=== PATIENT | male | born 1970 | race African-American/Black ===

== ENCOUNTER 2019-10-14 12:03 | Inpatient (IN) | payer OTHER ==
--- NOTE | 2019-10-14 14:00 | BHS.RME ---
Substance Use & Tx History - Substance Use History Alcohol Substance amount: 1/2 pint Frequency of use: Daily Substance route: Oral Date of Last Use: 10/13/19 Heroin Substance amount: 2 bags Frequency of use: More than 3 times per week Substance route: Inhalation (ex: sniffing or snorting) Date of Last Use: 10/14/19 Cocaine-Crack Substance amount: $50 Frequency of use: Daily Substance route: Smoking Date of Last Use: 10/13/19 Klonopin Substance amount: 2 mg x 2 tabs Frequency of use: More than 3 times per week Substance route: Oral Date of Last Use: 10/10/19 Marijuana/Hashish Substance amount: $20 Frequency of use: Daily Substance route: Smoking Date of Last Use: 10/14/19 Nicotine Substance amount: one pack Frequency of use: Daily Substance route: Smoking Date of Last Use: 10/14/19 Physical/Psych/Mental Status - Behavior General Behavior: Increased activity (restlessness, agitation) Eye Contact: Normal - Cooperativeness Cooperativeness: Cooperative - Thinking Thought Processes: Tight Thought content: Future oriented - Physical Health Problems Is patient presently having any pain?: No Does patient presently have any injuries (include location): No Does patient currently have a fever: No CIWA Nausea/Vomitin-No Nausea/No Vomiting Muscle Tremors: 1-None Visible, but [place] Anxiety: 1-Mildly Anxious Agitation: 1-Slight > Activity Paroxysmal Sweats: 1-Minimal Palms Moist Orientation: 1-Uncertain about Date Tacttile Disturbances: 0-None Auditory Disturbances: 0-None Visual Disturbances: 2-Mild Sensitivity Headache: 0-None Present CIWA-Ar Total Score: 7
--- NOTE | 2019-10-14 15:13 | HP ---
COWS - Scale Resting Pulse: 0= ID 80 or Below Sweatin= Chills/Flushing Restless Observation: 0= Sits Still Pupil Size: 0= Normal to Room Light Bone or Joint Aches: 0= None Runny Nose/ Eye Tearin= None GI Upset > 30mins: 0= None Tremor Observation: 1= Tremor [place], Not Seen Yawning Observation: 0= None Anxiety or Irritability: 1=Feels Anxious/Irritable Goose Flesh Skin: 0=Smooth Skin COWS Score: 3 CIWA Score Nausea/Vomitin-No Nausea/No Vomiting Muscle Tremors: 1-None Visible, but [place] Anxiety: 1-Mildly Anxious Agitation: 1-Slight > Activity Paroxysmal Sweats: 1-Minimal Palms Moist Orientation: 1-Uncertain about Date Tacttile Disturbances: 0-None Auditory Disturbances: 0-None Visual Disturbances: 2-Mild Sensitivity Headache: 0-None Present CIWA-Ar Total Score: 7 - Admission Criteria OASAS Guidelines: Admission for Medically Managed Detox: Requires at least one of the followin. CIWA greater than 12 2. Seizures within the past 24 hours 3. Delirium tremens within the past 24 hours 4. Hallucinations within the past 24 hours 5. Acute intervention needed for co occurring medical disorder 6. Acute intervention needed for co occurring psychiatric disorder 7. Severe withdrawal that cannot be handled at a lower level of care (continued vomiting, continued diarrhea, abnormal vital signs) requiring intravenous medication and/or fluids 8. Admitting History and Physical - Admission Chief Complaint: Mr. Brumfield is a 49 yo man who presents to [facility] stating he is here "to take a break" from polysubstance use disorder. History of Present Illness: Mr. Brumfield is a 49 yo man who presents to [facility] stating he is here "to take a break" from polysubstance use disorder. This is his first admission to [facility]. He was in [facility] 5 years ago for detox and rehab. He relapsed about 2 days post discharge from [facility]. PMH: Asthma, eczema PSH: none Psych: depression, anxiety on no meds SOC: has his own place in the [place] Legal: none - Substance Use History Alcohol Substance amount: 1/2 pint Frequency of use: Daily Substance route: Oral Date of Last Use: 10/13/19 First use age 13 y No seizures or blackouts. Admits to an eye boat laborer Heroin Substance amount: 2 bags Frequency of use: More than 3 times per week Substance route: Inhalation (ex: sniffing or snorting) Date of Last Use: 10/14/19 First use age 13. OD x 1, May 04, 2019. No Narcan at [facility]. Cocaine-Crack Substance amount: $50 Frequency of use: Daily Substance route: Smoking Date of Last Use: 10/13/19 First use age 13 y Klonopin Substance amount: 2 mg x 2 tabs Frequency of use: More than 3 times per week Substance route: Oral Date of Last Use: 10/10/19 First use age 13 Marijuana/Hashish Substance amount: $20 Frequency of use: Daily Substance route: Smoking Date of Last Use: 10/14/19 First use age 13 y Nicotine Substance amount: one pack Frequency of use: Daily Substance route: Smoking Date of Last Use: 10/14/19 First use age 13 y Patient Name: Shane Brumfield Date: 1970 Address: [address] [place] [address] Sex: Male Rx Written Rx Dispensed Drug Quantity Days Supply Prescriber Name 10/21/2018 10/22/2018 buprenorphine-naloxone 8-2 mg sl film 14 7 Yady Barrett MD 10/14/2018 10/15/2018 buprenorphine-naloxone 8-2 mg sl film 14 7 Yady Barrett MD Pt meets admission criteria due to current level of intoxication obscures full withdrawal spectrum. Additionally, he has comorbid medical conditions and untreated psychiatric issues. Pt was seen and had Utox done: THC and KARTIK Pt then left the facility and returned, repeat UDS: THC, KARTIK, FEN, MOP History Source: Patient Limitations to Obtaining History: No Limitations Admission ROS S - HPI Allergies/Adverse Reactions: Allergies Allergy/AdvReac Type Severity Reaction Status Date / Time No Known Drug Allergies Allergy Verified 10/14/19 15:27 Exam Limitations: No Limitations - Ebola screening Have you traveled outside of the country in the last 21 days: No Have you been sick,other than usual withdrawal symptoms: No Do you have a fever: No - Review of Systems Constitutional: Changes in sleep (trouble falling and staying asleep) Respiratory: reports: No Symptoms reported Cardiac: reports: No Symptoms Reported GI: reports: No Symptoms Reported : reports: No Symptoms Reported Musculoskeletal: reports: Back Pain (chronic) Integumentary: reports: Other (eczema, diffuse) Neuro: reports: No Symptoms reported Endocrine: reports: No Symptoms Reported Hematology: reports: No Symptoms Reported Psychiatric: reports: Anxious, Depressed (no SI) Patient History - Smoking Cessation Smoking history: Current every day smoker Have you smoked in the past 12 months: Yes Hx Chewing Tobacco Use: No Initiated information on smoking cessation: Yes 'Breaking Loose' booklet given: 10/14/19 Admission Physical Exam BHS - Vital Signs Vital Signs: vitals at 3:31 pm: Oxygen sat 100%, HR 72, BP 106/79, RR 16 - Physical General Appearance: Yes: No Apparent Distress, Nourished, Thin HEENTM: Yes: EOMI, Hearing grossly Normal, Normocephalic, Normal Voice Respiratory: Yes: Lungs Clear, Normal Breath Sounds, No Respiratory Distress, No Accessory Muscle Use Neck: Yes: Within Normal Limits, Supple Breast: Yes: Breast Exam Deferred Cardiology: Yes: Regular Rhythm, Regular Rate, S1, S2 Abdominal: Yes: Non Tender, Flat, Soft, Increased Bowel Sounds Genitourinary: Yes: Other (deferred) Back: Yes: Normal Inspection Musculoskeletal: Yes: Gait Steady Extremities: Yes: Normal Inspection, Non-Tender Neurological: Yes: Alert, Normal Response Integumentary: Yes: Normal Color, Dry, Warm - Diagnostic (1) Alcohol intoxication Current Visit: Yes Status: Acute Qualifiers: Complication of substance-induced condition: uncomplicated Qualified Code(s): F10.920 - Alcohol use, unspecified with intoxication, uncomplicated (2) Opioid use disorder Current Visit: Yes Status: Acute (3) Cocaine dependence Current Visit: Yes Status: Acute Qualifiers: Substance use status: uncomplicated Qualified Code(s): F14.20 - Cocaine dependence, uncomplicated (4) History of benzodiazepine use Current Visit: No Status: Chronic (5) Cannabis dependence Current Visit: Yes Status: Acute (6) Nicotine dependence Current Visit: Yes Status: Acute Qualifiers: Nicotine product type: cigarettes Substance use status: uncomplicated Qualified Code(s): F17.210 - Nicotine dependence, cigarettes, uncomplicated (7) Depression Current Visit: Yes Status: Acute (8) Asthma Current Visit: No Status: Chronic (9) Eczema Current Visit: No Status: Chronic Cleared for Admission BHS - Detox or Rehab Detox Regimen/Protocol: Methadone/Librium Breathalyzer - Breathalyzer Breathalyzer: 0.011 Urine Drug Screen - Test Device Lot number: [id number] Expiration date: 10/04/21 (pt had second UDS: after he left and returned: THC, KARTIK, FEN, MOP) - Control Is test valid?: Yes - Results Drug screen NEGATIVE: No Urine drug screen results: THC-Marijuana, KARTIK-Cocaine Inpatient Rehab Admission - Rehab Decision to Admit Inpatient rehab admission?: No
[2019-10-14] MEDS ORDERED: chlordiazePOXIDE HCL 25 MG CAPSULE PO PRN (15:27)
[2019-10-14] MEDS ORDERED: NICOTINE POLACRILEX 2 MG GUM BUC PRN (15:27)
[2019-10-14] MEDS ORDERED: MAGNESIUM HYDROX 2400MG/30ML ORAL SUSPENSION 30 ML CUP PO PRN (15:27)
[2019-10-14] MEDS ORDERED: MENTHOL/PHENOL 1 EACH UD MM PRN (15:27)
[2019-10-14] MEDS ORDERED: IBUPROFEN 400 MG TABLET (FP) PO PRN (15:27)
[2019-10-14] MEDS ORDERED: ACETAMINOPHEN 325 MG TABLET (FP) PO PRN ×2 (15:27)
[2019-10-14] MEDS ORDERED: cloNIDine HCL 0.1 MG TABLET PO PRN (15:27)
[2019-10-14] MEDS ORDERED: METHADONE HCL 10 MG TABLET (FOR DETOX USE ONLY) PO ONE (15:27)
[2019-10-14] MEDS ORDERED: METHOCARBAMOL 500 MG TABLET PO PRN (15:27)
[2019-10-14] MEDS ORDERED: BISMUTH SUBSALICYLATE 524 MG/30 ML UD PO PRN (15:27)
[2019-10-14] MEDS ORDERED: ONDANSETRON *ODT* 4 MG TABLET SL PRN (15:27)
[2019-10-14] MEDS ORDERED: MAGNESIUM CITRATE 300 ML BOTTLE PO PRN (15:27)
[2019-10-14 15:52] VITALS: BMI 19.2
[2019-10-14 16:48] LABS: HEMATOCRIT 41.7 % (35.4-49); HEMOGLOBIN 13.9 GM/dL (11.7-16.9); MCH 31.2 pg (25.7-33.7); MCHC 33.5 g/dl (32.0-35.9); MEAN CELL VOLUME 93.1 fl (80-96); MEAN PLT VOLUME 8.7 fl (7.5-11.1); PLATELET COUNT 184 K/MM3 (134-434); RBC 4.47 M/mm3 (4.00-5.60); RDW 13.9 % (11.9-15.9); WHITE BLOOD COUNT 10.3 K/mm3 (4.0-10.0)
[2019-10-14 16:58] LABS: BILIRUBIN,TOTAL 0.8 mg/dL (0.2-1); BLOOD UREA NITROGEN 11.4 mg/dL (7-18); POTASSIUM 4.5 mmol/L (3.5-5.1); TOT PROT 7.4 g/dl (6.4-8.2)
[2019-10-14] MEDS: chlordiazePOXIDE HCL 25 MG CAPSULE PO SCH ×2 (17:11→22:09)
[2019-10-14] MEDS: NICOTINE 21 MG/24 HOURS TOPICAL PATCH TD SCH (17:15)
[2019-10-14] MEDS: hydrOXYzine PAMOATE 25 MG CAPSULE (FP) PO SCH ×2 (17:20→22:11)
[2019-10-14] MEDS: THIAMINE HCL 100 MG TABLET (FP) PO SCH (22:09)
[2019-10-14] MEDS: MELATONIN 5 MG TABLETS PO SCH (22:09)
[2019-10-15] MEDS: hydrOXYzine PAMOATE 25 MG CAPSULE (FP) PO SCH ×2 (05:26→10:57)
[2019-10-15] MEDS: chlordiazePOXIDE HCL 25 MG CAPSULE PO SCH ×4 (05:26→22:00)
[2019-10-15] MEDS ORDERED: METHADONE HCL 5 MG TABLET (FOR DETOX USE ONLY) PO ONE (10:00)
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
[2019-10-15] MEDS: NICOTINE 21 MG/24 HOURS TOPICAL PATCH TD SCH (10:56)
[2019-10-15] MEDS: PRENATAL VITAMINS W/ FOLIC ACID TABLET (FP) PO SCH (10:56)
[2019-10-15] MEDS ORDERED: hydrOXYzine PAMOATE 25 MG CAPSULE (FP) PO PRN (12:26)
--- NOTE | 2019-10-15 12:43 | PN ---
S CIWA - CIWA Score Nausea/Vomitin-No Nausea/No Vomiting Muscle Tremors: 2 Anxiety: 1-Mildly Anxious Agitation: 1-Slight > Activity Paroxysmal Sweats: No Perspiration Orientation: 0-Oriented Tacttile Disturbances: 0-None Auditory Disturbances: 0-None Visual Disturbances: 0-None Headache: 0-None Present CIWA-Ar Total Score: 4 BHS COWS - Scale Resting Pulse: 0= [place] 80 or Below Sweatin= Chills/Flushing Restless Observation: 1= Difficult to Sit Still Pupil Size: 0= Normal to Room Light Bone or Joint Aches: 1= Mild Discomfort Runny Nose/ Eye Tearin= None GI Upset > 30mins: 0= None Tremor Observation of Outstretched Hands: 1= Tremor [place], Not Seen Yawning Observation: 1= 1-2x During Session Anxiety or Irritability: 1=Feels Anxious/Irritable Goose Flesh Skin: 0=Smooth Skin COWS Score: 6 S Progress Note (SOAP) Subjective: irritable body aches sweats agitation Objective: 10/15/19 12:42 Vital Signs Temperature 99.3 F 10/15/19 09:18 Pulse Rate 68 10/15/19 09:18 Respiratory Rate 18 10/15/19 09:18 Blood Pressure 121/75 10/15/19 09:18 O2 Sat by Pulse Oximetry (%) 99 10/15/19 09:18 Laboratory Tests 10/14/19 10/14/19 10/14/19 15:00 15:00 15:00 WBC 10.3 H RBC 4.47 Hgb 13.9 Hct 41.7 MCV 93.1 MCH 31.2 MCHC 33.5 RDW 13.9 Plt Count 184 MPV 8.7 Sodium 141 Potassium 4.5 Chloride 106 Carbon Dioxide 29 Anion Gap 7 L BUN 11.4 Creatinine 1.0 Est GFR (CKD-EPI)AfAm 102.69 Est GFR (CKD-EPI)NonAf 88.61 Random Glucose 117 H Calcium 9.0 Total Bilirubin 0.8 AST 40 H ALT 38 Alkaline Phosphatase 94 Total Protein 7.4 Albumin 4.0 Syphilis Serology Non-reactive labs noted aaox3 ambulating no acute distress Assessment: 10/15/19 12:43 withdrawals Plan: continue detox increase fluids
--- NOTE | 2019-10-15 15:47 | EKG ---
Test Reason : Blood Pressure : / mmHG Vent. Rate : 065 BPM Atrial Rate : 065 BPM P-R Int : 142 ms QRS Dur : 090 ms QT Int : 424 ms P-R-T Axes : 063 078 074 degrees QTc Int : 440 ms NORMAL SINUS RHYTHM MINIMAL VOLTAGE CRITERIA FOR LVH, MAY BE NORMAL VARIANT BORDERLINE ECG NO PREVIOUS ECGS AVAILABLE Confirmed by RYAN CHATMAN MD ([id number]) on 10/15/2019 3:47:17 PM Referred By: Confirmed By:RYAN CHATMAN MD
[2019-10-15] MEDS: QUEtiapine FUMARATE 100 MG TABLET (FP) PO SCH (21:57)
[2019-10-15] MEDS: MELATONIN 5 MG TABLETS PO SCH (21:57)
[2019-10-15] MEDS: THIAMINE HCL 100 MG TABLET (FP) PO SCH (21:57)
[2019-10-15] MEDS: MAG HYDROX/AL HYDROX/SIMETH 30 ML UNIT-DOSE CUP PO PRN (22:21)
[2019-10-16] MEDS: chlordiazePOXIDE HCL 25 MG CAPSULE PO SCH ×4 (06:51→22:11)
[2019-10-16] MEDS ORDERED: METHADONE HCL 10 MG TABLET (FOR DETOX USE ONLY) PO ONE (10:00)
[2019-10-16] MEDS ORDERED: MASKS NR ONE (10:07)
[2019-10-16] MEDS: PRENATAL VITAMINS W/ FOLIC ACID TABLET (FP) PO SCH (10:24)
[2019-10-16] MEDS: NICOTINE 21 MG/24 HOURS TOPICAL PATCH TD SCH (10:24)
[2019-10-16] MEDS ORDERED: PANTOPRAZOLE 20 MG TABLET PO ONE (12:03)
--- NOTE | 2019-10-16 14:13 | PN ---
S CIWA - CIWA Score Nausea/Vomitin-No Nausea/No Vomiting Muscle Tremors: 2 Anxiety: 3 Agitation: 2 Paroxysmal Sweats: 1-Minimal Palms Moist Orientation: 0-Oriented Tacttile Disturbances: 1-Very Mild Itch/Numbness Auditory Disturbances: 0-None Visual Disturbances: 1-Very Mild Sensitivity Headache: 0-None Present CIWA-Ar Total Score: 10 BHS COWS - Scale Resting Pulse: 0= [place] 80 or Below Sweatin= Chills/Flushing Restless Observation: 1= Difficult to Sit Still Pupil Size: 0= Normal to Room Light Bone or Joint Aches: 2= Severe Diffuse Aches Runny Nose/ Eye Tearin= None GI Upset > 30mins: 0= None Tremor Observation of Outstretched Hands: 1= Tremor [place], Not Seen Yawning Observation: 1= 1-2x During Session Anxiety or Irritability: 2=Irritable/Anxious Goose Flesh Skin: 0=Smooth Skin COWS Score: 8 BHS Progress Note (SOAP) Subjective: Anxious, Restless, Body Aches, Fatigue, Sweating. Objective: Patient A & O X 3, Observed Ambulating on Detox Unit Unassisted. In No Acute Distress. 10/16/19 14:12 Vital Signs Temperature 98.1 F 10/16/19 08:50 Pulse Rate 80 10/16/19 08:50 Respiratory Rate 19 10/16/19 08:50 Blood Pressure 93/67 10/16/19 08:50 O2 Sat by Pulse Oximetry (%) 100 10/16/19 08:50 Laboratory Tests 10/14/19 10/14/19 10/14/19 15:00 15:00 15:00 WBC 10.3 H RBC 4.47 Hgb 13.9 Hct 41.7 MCV 93.1 MCH 31.2 MCHC 33.5 RDW 13.9 Plt Count 184 MPV 8.7 Sodium 141 Potassium 4.5 Chloride 106 Carbon Dioxide 29 Anion Gap 7 L BUN 11.4 Creatinine 1.0 Est GFR (CKD-EPI)AfAm 102.69 Est GFR (CKD-EPI)NonAf 88.61 Random Glucose 117 H Calcium 9.0 Total Bilirubin 0.8 AST 40 H ALT 38 Alkaline Phosphatase 94 Total Protein 7.4 Albumin 4.0 Syphilis Serology Non-reactive COVID-19 ([facility]) 10/14/19 16:00 WBC RBC Hgb Hct MCV MCH MCHC RDW Plt Count MPV Sodium Potassium Chloride Carbon Dioxide Anion Gap BUN Creatinine Est GFR (CKD-EPI)AfAm Est GFR (CKD-EPI)NonAf Random Glucose Calcium Total Bilirubin AST ALT Alkaline Phosphatase Total Protein Albumin Syphilis Serology COVID-19 ([facility]) Not detected Lab Results noted. Assessment: 10/16/19 14:13 WITHDRAWAL SYMPTOMS. Plan: Continue Detox.
[2019-10-16] MEDS: QUEtiapine FUMARATE 100 MG TABLET (FP) PO SCH (22:11)
[2019-10-16] MEDS: THIAMINE HCL 100 MG TABLET (FP) PO SCH (22:11)
[2019-10-16] MEDS: MELATONIN 5 MG TABLETS PO SCH (22:11)
[2019-10-17] MEDS ORDERED: chlordiazePOXIDE HCL 10 MG CAPSULE PO PRN
[2019-10-17] MEDS ORDERED: MASKS NR ONE (05:49)
[2019-10-17] MEDS: chlordiazePOXIDE HCL 10 MG CAPSULE PO SCH ×4 (05:51→22:56)
[2019-10-17] MEDS: PANTOPRAZOLE 20 MG TABLET PO SCH (05:51)
[2019-10-17] MEDS ORDERED: METHADONE HCL 5 MG TABLET (FOR DETOX USE ONLY) PO ONE (06:00)
[2019-10-17] MEDS: NICOTINE 21 MG/24 HOURS TOPICAL PATCH TD SCH (11:02)
[2019-10-17] MEDS: PRENATAL VITAMINS W/ FOLIC ACID TABLET (FP) PO SCH (11:02)
--- NOTE | 2019-10-17 14:46 | PN ---
S CIWA - CIWA Score Nausea/Vomitin-No Nausea/No Vomiting Muscle Tremors: 2 Anxiety: 2 Agitation: 1-Slight > Activity Paroxysmal Sweats: 1-Minimal Palms Moist Orientation: 0-Oriented Tacttile Disturbances: 0-None Auditory Disturbances: 0-None Visual Disturbances: 0-None Headache: 0-None Present CIWA-Ar Total Score: 6 BHS COWS - Scale Resting Pulse: 0= [place] 80 or Below Sweatin= Chills/Flushing Restless Observation: 0= Sits Still Pupil Size: 0= Normal to Room Light Bone or Joint Aches: 1= Mild Discomfort Runny Nose/ Eye Tearin= None GI Upset > 30mins: 1= Stomach Cramp Tremor Observation of Outstretched Hands: 1= Tremor [place], Not Seen Yawning Observation: 0= None Anxiety or Irritability: 1=Feels Anxious/Irritable Goose Flesh Skin: 0=Smooth Skin COWS Score: 5 S Progress Note (SOAP) Subjective: Sweating Objective: 10/17/19 14:44 Last Vital Signs Temp Pulse Resp BP Pulse Ox 97.7 F 64 16 109/74 97 10/17/19 12:50 10/17/19 12:50 10/17/19 12:50 10/17/19 12:50 10/17/19 12:50 Laboratory Tests 10/14/19 10/14/19 10/14/19 15:00 15:00 15:00 WBC 10.3 H RBC 4.47 Hgb 13.9 Hct 41.7 MCV 93.1 MCH 31.2 MCHC 33.5 RDW 13.9 Plt Count 184 MPV 8.7 Sodium 141 Potassium 4.5 Chloride 106 Carbon Dioxide 29 Anion Gap 7 L BUN 11.4 Creatinine 1.0 Est GFR (CKD-EPI)AfAm 102.69 Est GFR (CKD-EPI)NonAf 88.61 Random Glucose 117 H Calcium 9.0 Total Bilirubin 0.8 AST 40 H ALT 38 Alkaline Phosphatase 94 Total Protein 7.4 Albumin 4.0 Syphilis Serology Non-reactive COVID-19 ([facility]) 10/14/19 16:00 WBC RBC Hgb Hct MCV MCH MCHC RDW Plt Count MPV Sodium Potassium Chloride Carbon Dioxide Anion Gap BUN Creatinine Est GFR (CKD-EPI)AfAm Est GFR (CKD-EPI)NonAf Random Glucose Calcium Total Bilirubin AST ALT Alkaline Phosphatase Total Protein Albumin Syphilis Serology COVID-19 ([facility]) Not detected Labs reviewed: noted with mild hyperglycemia and transaminitis Assessment: 10/17/19 14:46 Withdrawal sxs Mild hyperglycemia and transaminitis noted Plan: Continue detox Encourage PO water intake Mild hyperglycemia: denies dm, could be r/t withdrawal, repeat fasting glucose Transaminitis: most likely due to alcoholism, (AST is mildly elevated), follow up with PCP for management
[2019-10-17] MEDS: MAG HYDROX/AL HYDROX/SIMETH 30 ML UNIT-DOSE CUP PO PRN (17:59)
[2019-10-17] MEDS: QUEtiapine FUMARATE 100 MG TABLET (FP) PO SCH (22:56)
[2019-10-17] MEDS: THIAMINE HCL 100 MG TABLET (FP) PO SCH (22:56)
[2019-10-17] MEDS: MELATONIN 5 MG TABLETS PO SCH (22:57)
[2019-10-18] MEDS ORDERED: chlordiazePOXIDE HCL 10 MG CAPSULE PO SCH (05:00)
[2019-10-18] MEDS: PANTOPRAZOLE 20 MG TABLET PO SCH (06:01)
[2019-10-18] MEDS: PRENATAL VITAMINS W/ FOLIC ACID TABLET (FP) PO SCH (10:36)
[2019-10-18] MEDS: NICOTINE 21 MG/24 HOURS TOPICAL PATCH TD SCH (10:36)
--- NOTE | 2019-10-18 13:54 | PN ---
[facility] CIWA - CIWA Score Nausea/Vomitin-No Nausea/No Vomiting Muscle Tremors: None Anxiety: 1-Mildly Anxious Agitation: 0-Normal Activity Paroxysmal Sweats: No Perspiration Orientation: 0-Oriented Tacttile Disturbances: 0-None Auditory Disturbances: 0-None Visual Disturbances: 0-None Headache: 0-None Present CIWA-Ar Total Score: 1 S Progress Note (SOAP) Subjective: alert,no complaint Objective: 10/18/19 13:52 Vital Signs Temperature 97.7 F 10/18/19 05:26 Pulse Rate 69 10/18/19 05:26 Respiratory Rate 17 10/18/19 05:26 Blood Pressure 129/71 10/18/19 05:26 O2 Sat by Pulse Oximetry (%) 98 10/18/19 05:26 Assessment: 10/18/19 13:53 no withdrawal symptom Plan: stable for discharge today,[facility]
--- NOTE | 2019-10-18 13:56 | DS ---
[facility] Detox Discharge Summary Admission Date: 10/14/19 Discharge Date: 10/18/19 - History Present History: Alcohol Dependence, Cannabis Dependence, Cocaine Dependence Additional Comments: alert,oriented x3 ambulation on the unit lung clear on auscultation bilaterally abdomen soft,no distension,no pain or tenderness no swelling of extremities stable for discharge life style change diet modification.no sugar diet advise follow up with [facility] outpatient program total time spending on discharge 35 minutes Pertinent Past History: asthma - Physical Exam Results Vital Signs: Vital Signs Temperature 97.7 F 10/18/19 05:26 Pulse Rate 69 10/18/19 05:26 Respiratory Rate 17 10/18/19 05:26 Blood Pressure 129/71 10/18/19 05:26 O2 Sat by Pulse Oximetry (%) 98 10/18/19 05:26 Pertinent Admission Physical Exam Findings: withdrawal signs and symptom Laboratory Last Values WBC 10.3 K/mm3 (4.0-10.0) H 10/14/19 15:00 RBC 4.47 M/mm3 (4.00-5.60) 10/14/19 15:00 Hgb 13.9 GM/dL (11.7-16.9) 10/14/19 15:00 Hct 41.7 % (35.4-49) 10/14/19 15:00 MCV 93.1 fl (80-96) 10/14/19 15:00 MCH 31.2 pg (25.7-33.7) 10/14/19 15:00 MCHC 33.5 g/dl (32.0-35.9) 10/14/19 15:00 RDW 13.9 % (11.9-15.9) 10/14/19 15:00 Plt Count 184 K/MM3 (134-434) 10/14/19 15:00 MPV 8.7 fl (7.5-11.1) 10/14/19 15:00 Sodium 141 mmol/L (136-145) 10/14/19 15:00 Potassium 4.5 mmol/L (3.5-5.1) 10/14/19 15:00 Chloride 106 mmol/L (98-107) 10/14/19 15:00 Carbon Dioxide 29 mmol/L (21-32) 10/14/19 15:00 Anion Gap 7 MMOL/L (8-16) L 10/14/19 15:00 BUN 11.4 mg/dL (7-18) 10/14/19 15:00 Creatinine 1.0 mg/dL (0.55-1.3) 10/14/19 15:00 Est GFR (CKD-EPI)AfAm 102.69 10/14/19 15:00 Est GFR (CKD-EPI)NonAf 88.61 10/14/19 15:00 Random Glucose 117 mg/dL (74-106) H 10/14/19 15:00 Calcium 9.0 mg/dL (8.5-10.1) 10/14/19 15:00 Total Bilirubin 0.8 mg/dL (0.2-1) 10/14/19 15:00 AST 40 U/L (15-37) H 10/14/19 15:00 ALT 38 U/L (13-61) 10/14/19 15:00 Alkaline Phosphatase 94 U/L (45-117) 10/14/19 15:00 Total Protein 7.4 g/dl (6.4-8.2) 10/14/19 15:00 Albumin 4.0 g/dl (3.4-5.0) 10/14/19 15:00 Syphilis Serology Non-reactive (NONREACTIVE) 10/14/19 15:00 COVID-19 ([facility]) Not detected (Not Detected) 10/14/19 16:00 Vital Signs Temperature 97.7 F 10/18/19 05:26 Pulse Rate 69 10/18/19 05:26 Respiratory Rate 17 10/18/19 05:26 Blood Pressure 129/71 10/18/19 05:26 O2 Sat by Pulse Oximetry (%) 98 10/18/19 05:26 - Treatment Hospital Course: Detox Protocol Followed, Detoxed Safely, Responded well, Discharged Condition Good Patient has Accepted a Rehab Referral to: declined - Medication Discharge Medications: Ambulatory Orders Quetiapine Fumarate [Seroquel -] 250 mg PO HS 10/14/19 - Diagnosis (1) Alcohol dependence, uncomplicated Current Visit: Yes Status: Acute (2) Cannabis dependence Current Visit: Yes Status: Acute (3) Cocaine dependence Current Visit: Yes Status: Acute Qualifiers: Substance use status: uncomplicated Qualified Code(s): F14.20 - Cocaine dependence, uncomplicated (4) Depression Current Visit: Yes Status: Acute (5) Bipolar disorder Current Visit: Yes Status: Ruled-out (6) Asthma Current Visit: No Status: Chronic - AMA Did Patient Leave Against Medical Advice: No
[2019-10-18] MEDS ORDERED: ALBUTEROL SO4 HFA INHALER IH PRN (13:57)
--- NOTE | 2019-10-18 14:02 | PN ---
[facility] Progress Note Note: Patient is scheduled for discharge tomorrow. Script for 30 days supply of Seroquel 100 mg/hs will be electronically transmitted to [facility], [address] [place] [id number]
[2019-10-18 14:04] VITALS: BP 132/70; PULSE 73; TEMP 97.1
[2019-10-19] MEDS ORDERED: chlordiazePOXIDE HCL 10 MG CAPSULE PO ONE (05:00)
== END 2019-10-18 13:00 | disposition home or self-care (01) | DRG 773 ==
LOC: YASAS 12:03 → Y6N 16:04
PROVIDERS: ADMIT Allergy & Immunology; ATTEND Allergy & Immunology
PROC: HZ2ZZZZ Detoxification Services for Substance Abuse Treatment (ICD-10-PCS; principal; 2019-10-14)
DX: F10.230 Alcohol dependence with withdrawal, uncomplicated (principal); F11.20 Opioid dependence, uncomplicated; F10.229 Alcohol dependence with intoxication, unspecified; F13.20 Sedative, hypnotic or anxiolytic dependence, uncomplicated; F14.20 Cocaine dependence, uncomplicated; F12.20 Cannabis dependence, uncomplicated; F17.210 Nicotine dependence, cigarettes, uncomplicated; F39 Unspecified mood [affective] disorder; F41.9 Anxiety disorder, unspecified; F32.9 Major depressive disorder, single episode, unspecified; J45.909 Unspecified asthma, uncomplicated; L30.9 Dermatitis, unspecified; R73.9 Hyperglycemia, unspecified; R74.0 Nonspecific elevation of levels of transaminase and lactic acid dehydrogenase [LDH]; Z62.810 Personal history of physical and sexual abuse in childhood; Z91.5 Personal history of self-harm; Z56.0 Unemployment, unspecified
CPT/HCPCS: 36415; 80053; 85027; 86780; 93005; 93010; U0003